=== PATIENT | male | born 1970 | race African-American/Black ===

== ENCOUNTER 2018-03-25 16:12 | Emergency (ER) | payer OTHER ==
[2018-03-25] MEDS: KETOROLAC 30 MG INJ IV (17:19)
[2018-03-25] MEDS: SOD CHLORIDE 0.9% 1,000 ML IV (17:19)
[2018-03-25] MEDS: CLINDAMYCIN 600 MG/D5W (PMX) 50 ML IVPB (17:22)
[2018-03-25 17:23] LABS: ADD MAN DIFF? NO
[2018-03-25 17:40] LABS: WHITE BLOOD COUNT 11.8 10^3/ul (4.8-10.8)
[2018-03-25 17:40] LABS: ABNORMAL IP MESSAGE 1; BASOPHILS % 0.3 % (0.0-2.0); EOSINOPHILS # 0.1 10^3/ul (0.0-0.5); EOSINOPHILS % 0.8 % (0.0-7.0); HEMATOCRIT 39.5 % (42.0-52.0); HEMOGLOBIN 12.7 g/dl (14.0-18.0); LYMPHOCYTES # 2.1 10^3/ul (0.8-2.9); LYMPHOCYTES % 18.1 % (15.0-51.0); MEAN CORPUSCULAR HEMOGLOBIN 29.3 pg (29.0-33.0); MEAN CORPUSCULAR HGB CONC 32.2 g/dl (32.0-37.0); MEAN PLATELET VOLUME 10.9 fl (7.4-10.4); MONOCYTE # 1.8 10^3/ul (0.3-0.9); MONOCYTES % 14.9 % (0.0-11.0); NEUTROPHIL # 7.7 10^3/ul (1.6-7.5); NEUTROPHILS % 65.6 % (39.0-77.0); PLATELET COUNT 343 10^3/UL (140-415); POSITIVE DIFF @See below; RED BLOOD COUNT 4.34 10^6/ul (4.70-6.10); RED CELL DISTRIBUTION WIDTH 12.3 % (11.5-14.5)
[2018-03-25 17:43] LABS: ALANINE AMINOTRANSFERASE 28 IU/L (13-69); ALBUMIN 4.3 g/dl (3.3-4.9); ALBUMIN/GLOBULIN RATIO 0.97; ALKALINE PHOSPHATASE 102 IU/L (42-121); ANION GAP 10 (5-13); ASPARTATE AMINO TRANSFERASE 39 IU/L (15-46); BILIRUBIN,INDIRECT 0.2 mg/dl (0-1.1); BILIRUBIN,TOTAL 0.2 mg/dl (0.2-1.3); BLOOD UREA NITROGEN 14 mg/dl (7-20); CALCIUM 9.8 mg/dl (8.4-10.2); CARBON DIOXIDE 29 mmol/L (21-31); CHLORIDE 101 mmol/L (97-110); CREATININE 0.89 mg/dl (0.61-1.24); Estimated GFR > 60 mL/min (>60); GLUCOSE 119 mg/dl (70-220); LIPASE 22 U/L (23-300); SODIUM 140 mmol/L (135-144); TOTAL PROTEIN 8.7 g/dl (6.1-8.1)
[2018-03-25] MEDS: IOHEXOL 300MG/ML 150 ML BTL (19:01)
[2018-03-25] MEDS: SOD CHLORIDE 0.9% 100 ML (19:01)
== END 2018-03-25 21:22 | disposition home or self-care (01) ==
LOC: FTE 16:12
DX: L03.211 Cellulitis of face (principal)
CPT/HCPCS: 36415; 70486; 80053; 83690; 85025; 96374; 96375; 99285-25